=== PATIENT | female | born 1940 | race African-American/Black ===

== ENCOUNTER → 2017-10-10 | Day surgery (SDC) | payer OTHER, MEDICARE ==
[~2017-10-10] VITALS: Ht 170.2 cm; Wt 78.0 kg
[~2017-10-10] MED LIST: DILAUDID4 M1 PO; HYDROCHLOROTHIA25 M1 PO; LEVOTHYROXINE88 MCG PO; LISINOPRIL10 M1 PO; NORVASC5 M1 PO
--- NOTE | 2017-10-11 13:38 | Operative Report ---
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 Urine Output: as per anesthesia Drains: none Specimens: none Microbiology: none Tourniquet: none Complications: Inadvertent dural puncture x1 at L4/5 level Condition: Stable Operative Indication: Ms. Hooker suffers from chronic left knee pain with Hx of left TKR followed by x 4 left knee explorations. The pt was treated with conventional SCS ( [employer] Dionicio System) in 2016 with good pain control, that lasted for one year and she reports no pain relief. Fluoroscopy showed intact placed epidural electrodes with out any migration. The pt has been on opioid meds and she expressed interest in neuromodulatory analgesia. She reported >80% pain relief with epidural lateral spinal canal stimulation -- left L3 and L4 DRG stimulation and expressed interested in the perm. implant of the same. I discussed with the pt about the risks and benefits of the procedure-- including infection, bleeding in the spine injury to nerve roots and dural puncture with Headache, inadequate pain control, etc. The pt understood and consented for the same. The pt was given Vancomycin 1 gm Intravenously , 2 hrs in to the intraoperative course, in addition to the Kefzol 2 gm IV given preop. Operative/Procedure Note Note: The pt was placed prone and Lumbo sacral spine and gluteal area was prepped and draped sterile AP and Lateral Fluoroscopy was used for the procedure. Using the 14 G Tuohy needle provided with the DRG stimulator kit of [employer] 360, after infiltration of the skin and underling tissues, from right para median approach, left L3/4 interlaminar space was approached and the DRG sheath with 4 point contact electrode was advanced to 6 o' clock position of the left L3 pedicle. The posterior position of the electrode was confirmed by lateral view. Relative difficulty due to inability to manipulate the Axium through the sheath and the sheath was not getting advanced in to the Left L3/4 foramen. Eventually when the Axium electrode was advanced in to the left L3/4 foramen below the pedicle, in the anatomical location of the left L3 DRG, at this point 'S' loop was created and stylet along with the needle and guidewire was removed carefully without disturbing the final position of the electrode with 3 contacts lying with DRG. In analogous technique L4/5 interlaminar area was approached using another Tuohy needle from the DRG kit (with relative difficult due to obliterated space and at one point there was inadvertent CSF leak) and another DRG sheath with 4 point contact electrode was advanced to 6 o' clock position of the left L4 pedicle. The posterior position of the electrode was confirmed by lateral view. at this point 'S' loop was created and stylet along with the needle and guidewire was removed carefully without disturbing the final position of the electrode with 3 contacts lying with DRG. At this point under deeper level sedation, vertical incision was given connecting two Tuohy needles deepened to the para spinal tissues. The stylets from the electrodes and sheath from he needle were removed without disturbing the final position of the epidurally placed L3 and L4 sub pedicular Axium electrodes. At this point in the left gluteal area incision was given, deepened in to subcutaneous plane, upper and lower subcutaneous flaps were raised. Hemostasis was secured. tunnel bert was passed form right lumbosacral to the left gluteal wound and the electrodes were delivered in to the left gluteal area. Both Axium electrodes were connected to the upper two ports of t 2nd [employer] DRG battery and impedance was checked to be in WNL. Both wounds were irrigated, hemostasis was secured and closed in layers and skin with herberth and dressed sterile The pt was brought to recovery room. The pt had 5/5 MP in both lower extremities . She reported paresthesia covering the left knee area with low amp. stimulation.The pt was discharged with post op instructions and few programs to try. Discharge Disposition: Same Day Admissions Additional Comments: The pt was discharged with post op instructions
--- NOTE | 2017-10-11 15:08 | RADIOLOGY REPORT ---
EXAMINATION: XR LUMBOSACRAL SPINE CLINICAL INFORMATION: 77-year-old female for spinal cord stimulator implant placement. COMPARISON: None. TECHNIQUE: Multiple spot radiographs (37) were obtained at the time of the spinal cord stimulator implant placement using C-arm fluoroscopy. FLUOROSCOPY TIME: 6 minutes and 30 seconds. FINDINGS: Multiple spot radiographs were obtained at the time of the procedure. Full procedural detail will be dictated by the performing surgeon Dr. Cortez. IMPRESSION: C-arm fluoroscopic assistance was provided at the time of the spinal cord stimulator implant placement. Full procedural detail and the findings will be dictated by the performing surgeon Dr. Cortez.
== END ==
LOC: STS 00:51
DX: G90.522 Complex regional pain syndrome I of left lower limb (principal); Z96.652 Presence of left artificial knee joint; I10 Essential (primary) hypertension; E03.9 Hypothyroidism, unspecified
CPT/HCPCS: 72100; C1755; C1767; C1778; C1787; J0690; J1885; J2001; J2250; J3370; J3490

== ENCOUNTER → 2017-12-14 | Day surgery (SDC) | payer OTHER, MEDICARE ==
[~2017-12-14] VITALS: Ht 170.2 cm; Wt 79.4 kg
--- NOTE | 2017-12-14 17:51 | Operative Report ---
Operative/Inv Procedure Report Surgery Date: 12/14/17 Name of Procedure: Explant of the SCS electrodes and IPG Pre-Operative Diagnosis: Migrated SCS (DRG) electrodes, CRPS left lower extremity - knee area Post-Operative Diagnosis: Same Estimated Blood Loss: less than 50ml Surgeon/Railroad Construction Director: Del Cortez MD Anesthesia: moderate sedation Monitors: As per anesthesia IV Fluids: as per anesthesia Implants: none Urine Output: as per anesthesia Drains: none Specimens: explanted system Microbiology: none Tourniquet: none Complications: CSF leak Condition: Stable Operative Indication: Ms. Tellez is 77 year old female patient with Hx of multiple surgical procedures after left TKR with chronic left knee pain symptoms. The pt underwent conventional Spinal Column Stimulator implant about 2 years ago (St[employer] Dionicio system) with good control of the left knee pain. The pt reported inadequate pain control for about 6 months and the SCS system was intact without any lead migration. She was trailed with DRG stimulation with reported excellent pain relief. This was followed by perm. implant of the DRG system. Unfortunately the leads migrated in post op period. Of note is the difficult in DRG lead placement at Left L4 level due to spondylolisthesis at L4/5 level. Today she is scheduled for revision of the SCS / DRG electrodes. Operative/Procedure Note Note: Risks and benefits of the procedure were explained to the pt, including possible injury to the spinal nerves and spinal membrane puncture with CSF leak. The pt understood the same and consented for the procedure. The pt was given 1 gm Vancomycin, as suggested by the ID specialist taking care of the pt. ( Hx left TKR with post op infection requiring ABx spacer placement and revision TKR). The patient was placed prone and lumbar and gluteal area was prepped with duraprep and draped sterile, combination of Lidocaine 2 % and Bupivacaine 05 % was used for local infiltration. The surgical scars in the right lumbar para spinal and left gluteal area ( IPG implant) were infiltrated with local anesthetic and incised deep to S/C plane the the IPG with the percutaneous electrodes were removed from the body. Using the Tuohy needle provided with the DRG electrode kit the epidural space at the L4/5 interlaminar space was entered without CSF at the mid line and the electrode with curved sheath was introduced in to the needle and the sheath with the electrode was advanced towards the left L3/4 foramina under live fluoroscopy. The sheath could not be easily advanced in to the foramen. Attempt was made to used the dissector and to release the adhesions at this level and in spite of this , neither nor the electrode could be advanced in other foramen While there was no CSF leak from the Tuohy needle, the attempted negotiation of the sheath towards the Left L3 foramen was fought with leak of CSF x2. In the best interest of the patient I decided to terminate the further lead placement at At L4/L5 level ,where the pt has Grade 1 spondylolisthesis with narrow foramen . I decided to terminate the procedure . Hemostasis was secured in both wounds, and they were closed in layers , wounds stapled and dressed sterile reinforced by pressure dressing. The pt was brought to the recovery room, and she was awake with 5/5 MP at the both ankles DF and PF. 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
--- NOTE | 2017-12-15 17:29 | RADIOLOGY REPORT ---
EXAMINATION: XR LUMBOSACRAL SPINE CLINICAL INFORMATION: 77-year-old female for spinal cord stimulator implant revision. COMPARISON: 10/10/2017. TECHNIQUE: Multiple spot radiographs (35) were obtained at the time of the spinal cord stimulator implant placement using C-arm fluoroscopy. FLUOROSCOPY TIME: 3 minutes and 8 seconds. FINDINGS: Multiple spot radiographs were obtained at the time of the procedure. Full procedural detail will be dictated by the performing surgeon Dr. Cortez. IMPRESSION: C-arm fluoroscopic assistance was provided at the time of the spinal cord stimulator implant placement. Full procedural detail and the findings will be dictated by the performing surgeon Dr. Cortez.
== END ==
LOC: STS 02:38
DX: T85.122A Displacement of implanted electronic neurostimulator of spinal cord electrode (lead), initial encounter (principal); G90.522 Complex regional pain syndrome I of left lower limb; M43.16 Spondylolisthesis, lumbar region; Z96.652 Presence of left artificial knee joint; M51.37 Other intervertebral disc degeneration, lumbosacral region; Z79.891 Long term (current) use of opiate analgesic; I10 Essential (primary) hypertension; E03.9 Hypothyroidism, unspecified
CPT/HCPCS: 72100; C1778; J0131; J2001; J2250; J3370